=== PATIENT | female | born 1995 | race Caucasian/White ===

== ENCOUNTER 2016-08-04 15:59 | Emergency (ER) | payer MEDICAID ==
[2016-08-04 16:11] VITALS: BP 145/83; PULSE 98; TEMP 99; BMI 21.6
== END 2016-08-04 17:10 | disposition home or self-care (01) ==
LOC: EDMC 15:59
DX: T14.90 Injury, unspecified (principal); Y09 Assault by unspecified means
CPT/HCPCS: 99281; 99282